=== PATIENT | male | born 1995 | race Caucasian/White ===

== ENCOUNTER 2016-10-14 05:30 | Day surgery (SDC) | payer OTHER ==
[~2016-10-14] VITALS: Ht 139.7 cm; Wt 38.5 kg
[~2016-10-14 05:30] MED LIST: DEPAKOTE125 MG PO; DIASTAT ACUDIAL10 MG PR; ERYTHROMYC1 APPLICAT BOTH EYES; LEXAPRO10 MG PO; MOTRIN400 MG PO; VIMPAT100 MG PO; VIMPAT50 MG PO
[2016-10-14 06:48] VITALS: BP 90/53
[2016-10-14] MEDS ORDERED: ACETAMINOPHEN-120 ML PO (08:33)
[2016-10-14 11:45] VITALS: BP 108/80
[2016-10-14 13:06] VITALS: BP 102/68
== END 2016-10-14 13:08 | disposition home or self-care (01) ==
LOC: SDC 05:30
PROC: 0FT44ZZ Resection of Gallbladder, Percutaneous Endoscopic Approach (ICD-10-PCS; principal; 2016-10-14)
DX: K80.10 Calculus of gallbladder with chronic cholecystitis without obstruction (principal); H54.0 Blindness, both eyes; F84.0 Autistic disorder; F98.8 Other specified behavioral and emotional disorders with onset usually occurring in childhood and adolescence; G40.909 Epilepsy, unspecified, not intractable, without status epilepticus; K21.9 Gastro-esophageal reflux disease without esophagitis; Z88.0 Allergy status to penicillin
CPT/HCPCS: 88304; C1769; J0131; J0690; J1100; J1170; J2250; J2405; J2710; J3010

== ENCOUNTER 2017-09-29 19:50 | Emergency (ER) | payer OTHER ==
[~2017-09-29] VITALS: Ht 137.2 cm; Wt 39.7 kg
[~2017-09-29 19:50] MED LIST changes: +ACETAMINOPHEN-120 ML PO
[2017-09-29 21:03] LABS: BASOPHIL (%) 0.5 % (0-1); EOSINOPHIL (%) 2.1 % (0-5); EOSINOPHIL COUNT 0.1 K/uL (0-0.3); HEMATOCRIT 45.4 % (38.0-50.0); HEMOGLOBIN 16.2 G/DL (12.5-16.6); IMMATURE GRANULOCYTE (%) 0.5 % (0.0-0.7); LYMPHOCYTE (%) 34.6 % (15-42); MCH 32.1 PG (29.0-34.0); MCHC 35.7 G/DL (30.0-36.0); MCV 90.1 FL (86-99); MONOCYTE (%) 8.4 % (3-12); MONOCYTE COUNT 0.5 K/uL (0-0.8); NEUTROPHIL (%) 53.9 % (45-76); NEUTROPHIL COUNT 3.1 K/uL (1.8-6.4); PLATELET COUNT 204 K/uL (156-360); RBC DIS.WIDTH-CV 11.5 % (11.8-14.6); RBC DIS.WIDTH-SD 37.6 % (39-53); RED BLOOD COUNT 5.04 M/uL (4.00-5.50); WHITE BLOOD COUNT 5.7 K/uL (4.1-10.2)
[2017-09-29 21:17] LABS: ALBUMIN 4.6 g/dL (3.2-4.8); CHLORIDE 105 mEq/L (99-109); POTASSIUM 4.3 mEq/L (3.7-5.4); SODIUM 143 mEq/L (136-147)
[2017-09-29 21:20] LABS: GLUCOSE 91 mg/dL (70-99); TOTAL PROTEIN 7.2 g/dL (6.4-8.3)
[2017-09-29 21:21] LABS: TOTAL BILIRUBIN 0.3 mg/dL (0.0-1.0)
[2017-09-29 21:23] LABS: ALKALINE PHOSPHATASE 78 IU/L (3-129); CREATININE 0.8 mg/dL (0.6-1.3); GFR ESTIMATE (CALCULATED) > 59 mL/min/ (58.99-99999)
[2017-09-29 21:24] LABS: UREA NITROGEN (BUN) 14 mg/dL (9-23)
[2017-09-29 21:25] LABS: AST (GOT) 24 IU/L (2-34); DIRECT BILIRUBIN 0.1 mg/dL (0.0-0.3)
[2017-09-29 21:26] LABS: ALT (GPT) 28 IU/L (3-49)
[2017-09-29 21:27] LABS: LIPASE 40 U/L (1.0-51.0)
[2017-09-29 21:39] LABS: MONOSPOT (MONONUCLEOSIS SEROL) NEGATIVE
[2017-09-29 22:17] LABS: APPEARANCE SL.HAZY ((CLEAR)); BILIRUBIN NEGATIVE; BLOOD NEGATIVE; COLOR YELLOW ((YELLOW)); GLUCOSE (STRIP) NEGATIVE; KETONES NEGATIVE; LEUKOCYTES NEGATIVE; NITRITE NEGATIVE; PROTEIN (STRIP) NEGATIVE; SPECIFIC GRAVITY 1.017 (1.000-1.030); UROBILINOGEN 0.2 MG/DL (0.2-1.0)
[2017-09-29 22:32] LABS: BACTERIA NONE SEEN /HPF; EPITHELIAL CELLS NONE SEEN /HPF; MUCUS TRACE /LPF; RED BLOOD CELLS 0-5 /HPF (0-5); WHITE BLOOD CELLS 0-5 /HPF (0-5)
[2017-09-29 22:56] LABS: AMPHETAMINE NEGATIVE (500 ng/mL); BARBITURATES NEGATIVE (200 ng/mL); BENZODIAZEPINES PRESUMPTIVE POSITIVE (150 ng/mL); BUPRENORPHINE NEGATIVE (10 ng/mL); COCAINE NEGATIVE (150 ng/mL); METHADONE NEGATIVE (200 ng/mL); METHAMPHETAMINE NEGATIVE (500 ng/mL); OPIATES (MORPHINE) NEGATIVE (100 ng/mL); OXYCODONE NEGATIVE (100 ng/mL); PHENCYCLIDINE NEGATIVE (25 ng/mL); PROPOXYPHENE NEGATIVE (300 ng/mL); THC CANNABINOIDS NEGATIVE (50 ng/mL); TRICYCLIC ANTIDEPRESSANTS NEGATIVE (300 ng/mL)
[2017-09-29 23:30] LABS: BENZODIAZEPINES, URINE SCREEN POSITIVE (200 ng/mL)
[2017-09-29 23:34] LABS: ACETAMINOPHEN (TYLENOL) < 10 MCG/ML (10-30)
[2017-09-29 23:50] LABS: VALPROIC ACID (DEPAKOTE) 52.8 MCG/ML (50-100)
[2017-09-30] MEDS ORDERED: ZOFRAN0.8 MG/1 M PO (00:37)
[2017-09-30 01:00] VITALS: BP 101/66
== END 2017-09-30 01:01 | disposition home or self-care (01) ==
LOC: EME 19:50
PROVIDERS: Physician Assistant
DX: R53.83 Other fatigue (principal); R11.0 Nausea; G40.909 Epilepsy, unspecified, not intractable, without status epilepticus; R10.13 Epigastric pain; F84.0 Autistic disorder
CPT/HCPCS: 80048; 80076; 80164; 81003; 83690; 84999; 85025; 86308; 87081; 87651 90; G0480; J2060